=== PATIENT | male | born 2000 | race Caucasian/White ===

== ENCOUNTER 2024-12-05 00:52 | Emergency (ER) | payer OTHER, SELFPAY ==
--- NOTE | 2024-12-05 00:54 | ED.GENADUL_ITS ---
Discharge Plan Disposition Patient Disposition: Home Condition: Good Discharge Details Clinical Impression: Traumatic hematoma of forehead, Laceration of skin of forehead, Fall due to slipping on ice or snow Primary Care Provider: None,None ED Provider: Eulogio Rahman Home Meds and New Rx's Prescriptions: No Action No Known Home Meds Discharge Instructions Additional Instructions: You were seen after slip and fall and suffered a small contusion and laceration to your forehead. This should heal with no issues over the next few days. CT of your head shows no intracranial traumatic injury or skull fracture. You may use acetaminophen ibuprofen as needed. You may follow-up with occupational medicine if you have persistent headaches, nausea, mental slowness. Return to ED for severe worsening headache, neurologic change, persistent vomiting, signs of infection. Referrals: Occupational Medicine [Provider Group] HPI General Mode of arrival: ambulatory . Date/Time Provider Initiated Documentation: 12/05/24 00:54 . Limitations to Documentation: no limitations . Information obtained by: patient and RN notes reviewed . HPI Narrative: Patient presenting to ED status post slip and fall on the ice with head strike. Patient does not think he lost consciousness. He does have pretty significant headache and nausea but denies vomiting. He is otherwise young and healthy. He struck the right side of his forehead and is small hematoma and superficial laceration there. Denies any neck pain. Denies any neurologic change. Denies injury elsewhere. Related Data Home Medications ?Medication ?Instructions ?Recorded ?Confirmed Unknown [No Known Home Meds] 12/05/24 12/05/24 Allergies Allergy/AdvReac Type Severity Reaction Status Date / Time No Known Drug Allergies Allergy Unknown Unknown Verified 12/05/24 00:59 Exam Narrative Exam Narrative: Const: WDWN male in NAD. VS per triage. HEENT: NC. Small hematoma with superficial laceration to upper right forehead. Eyes: PERRL and EOMI. Neck: Supple. Trachea midline. No posterior midline tenderness. Lungs: Normal respiratory effort. Neuro: A+O x 3. Normal speech, mentation, gait. Cranial nerves II - XII grossly intact. No gross motor or sensory deficit. Ext: No C/C/E. Medical Decision Making Patient presenting to ED with head injury status post slip and fall on the ice. Does not think he had a loss of consciousness. Small hematoma with superficial laceration to the right upper forehead. Does have significant headache and nausea. Will obtain CT head, clean his superficial wound and glue, give acetaminophen for headache. Preliminary read of head CT negative per radiology. Wound cleaned and adhesive applied by nursing. Patient may be discharged home. Follow-up with occupational medicine for any persistent headaches, nausea. Return precautions provided. Quality:[facility] Health Related Social Needs: No Data to Display PFSH All Active Problems (Updated 12/05/24 @ 01:50 by Eulogio Rahman MD) Fall due to slipping on ice or snow (Acute) Laceration of skin of forehead (Acute) Traumatic hematoma of forehead (Acute) Medical History No significant past medical history Surgical History No significant past surgical history Social History Smoking/Tobacco Use Status: Current every day Tobacco Type: cigarettes Smoking risk assessment performed?: Yes Alcohol Intake: current Alcohol Intake frequency: a few times a month Alcohol type: beer and hard liquor Drug use: Never Substance use type: does not use Housing: apartment Do you feel safe at home: Yes Do you feel safe in your relationship?: Yes
[2024-12-05 00:55] VITALS: BP 154/80; PULSE 74; RESP 22; TEMP 36.3; O2SAT 99
--- NOTE | 2024-12-05 01:18 | DI.CT_ITS ---
Exam(s) CT HEAD WO EXAM: CT HEAD WO CLINICAL HISTORY: slip and fall on ice; head injury. TECHNIQUE: Imaging Protocol: Axial computed tomography images with coronal and sagittal reformatted images were created and reviewed COMPARISON: No exams were available for comparison FINDINGS: There are no skull fractures. There is no fluid in the visualized paranasal sinuses. There is no evidence of intracranial hemorrhage, mass effect, or shift of midline structures. There are no extra-axial fluid collections. The ventricles are not enlarged or shifted and there is no blo od within the ventricular system nor within the basal cisterns. IMPRESSION: No acute intracranial findings on this noninfused CT scan of the brain. RADIATION DOSE DELIVERED: 853.67mGy.cm Total DLP DATA REPOSITORY: All CT scans at this facility are submitted to the National Radiology Data Registry (NRDR) Dose Index Registry (DIR) with the [employer] ([employer]). RADIATION OPTIMIZATION: All CT scans at this facility use at least one of these dose optimization te chniques: automated exposure control; mA and/or kV adjustment per patient size (includes targeted exa ms where dose is matched to clinical indication); or iterative reconstruction.
--- NOTE | 2024-12-05 01:39 | DI.VRAD_ITS ---
PROCEDURE INFORMATION: Exam: CT Head Without Contrast Exam date and time: 12/05/2024 1:10 AM Age: 24 years old Clinical indication: Injury or trauma; Work related; Blunt trauma (contusions or hematomas); Consciousness not specified; Injury date: 12/05/24; Slip and fall on ice; Head injury TECHNIQUE: Imaging protocol: Computed tomography of the head without contrast. Radiation optimization: All CT scans at this facility use at least one of these dose optimization techniques: automated exposure control; mA and/or kV adjustment per patient size (includes targeted exams where dose is matched to clinical indication); or iterative reconstruction. COMPARISON: No relevant prior studies available. FINDINGS: Brain: No acute intracranial hemorrhage, mass-effect, midline shift, or extra-axial collection is seen. The paige white matter differentiation appears preserved. Cerebral ventricles: The ventricular system and basilar cisterns appear appropriate in size and configuration. Paranasal sinuses: The visualized paranasal sinuses appear well-aerated. Mastoid air cells: The mastoid air cells appear well-aerated. Auditory system: The middle ear cavities appear clear. Bones: The bony calvarium appears intact. No depressed skull fracture is seen. Soft tissues: No gross focal scalp hematoma is seen. IMPRESSION: No acute intracranial hemorrhage or depressed skull fracture. Dictated and Authenticated by: Pablito Mckeon MD. Orderin Josiah Krishnan MD
== END 2024-12-05 01:51 | disposition home or self-care (01) ==
LOC: ER 02:07
PROVIDERS: Emergency Provider Emergency Medicine
DX: S01.81XA Laceration without foreign body of other part of head, initial encounter (principal); W00.0XXA Fall on same level due to ice and snow, initial encounter; S00.83XA Contusion of other part of head, initial encounter; F17.210 Nicotine dependence, cigarettes, uncomplicated
CPT/HCPCS: 99284; 70450; 99283